=== PATIENT | female | born 1995 | race African-American/Black ===

== ENCOUNTER 2019-10-08 00:37 | Emergency (ER) | payer OTHER, SELFPAY ==
[2019-10-08 00:40] VITALS: BP 135/96; PULSE 120; RESP 19; TEMP 37.9; O2SAT 100
[2019-10-08 01:12] VITALS: TEMP 37.5
[2019-10-08] MEDS: LIDOCAINE HCL 2% JELLY 30 ML TUBE 1 APPLIC MUCOUS MEM (01:58)
--- NOTE | 2019-10-08 02:09 | ED.FEMALEGU ---
HPI - Female Genitourinary General Chief complaint: Urogenital-Female Stated complaint: vaginal pain Time Seen by Provider: 10/08/19 00:56 History of Present Illness HPI Narrative: Patient is a 24-year-old female who presents the ER with pain around her vagina. Reports 3 days ago she was diagnosed with herpetic infection and started on Valtrex when urgent care in [place]. Symptoms had started 2 days prior to that. She has ulcerations around the vagina because significant discomfort with urinating and makes her very uncomfortable with any type of walking. She is having discomfort in the inguinal creases where she is developed some lymphadenopathy. Elevated temperature here but denies fevers or chills at home. She has no abdominal pain or nausea/vomiting. Has not noted any vaginal discharge or vaginal bleeding. Reports she was not treated for gonorrhea or chlamydia and she did not have a pelvic exam performed. Samples were taken from her lesions to see if they were in fact herpes. Related Data Allergies Allergy/AdvReac Type Severity Reaction Status Date / Time No Known Drug Allergies Allergy Unknown Unknown Unverified 10/08/19 01:58 Review of Systems Review of Systems: All systems reviewed & are unremarkable except as noted in HPI and below Constitutional: Constitutional: Denies chills Comments: No fevers Gastrointestinal: Gastrointestinal: Denies abdominal pain, Denies diarrhea, Denies nausea and Denies vomiting Genitourinary: Genitourinary: Denies abnormal vaginal bleeding, Denies nocturia and Denies vaginal discharge Comments: Pain with urination but feels it is due to lesions not due to the urine itself. Integumentary/Breasts: Skin/Breast: Reports erythema and Reports skin ulcer PMFSH Past Medical History Medical History (Updated 10/08/19 @ 03:55 by Michael Sanders MD) Healthy female adult Surgical History Surgical History (Updated 10/08/19 @ 02:12 by Michael Sanders MD) History of appendectomy Social History Social History (Updated 10/08/19 @ 02:12 by Michael Sanders MD) Smoking status: Never smoker Gender identity (if verbalized by the patient): Female Exam Narrative: Exam Narrative: GENERAL: Uncomfortable-appearing, well-nourished, and in no acute distress. HEAD: Normocephalic, atraumatic. CHEST: Clear to auscultation. No respiratory distress. HEART: Regular rate and rhythm. Normal peripheral pulses. ABDOMEN: Soft, nontender, nondistended. EXTREMITIES: Normal range of motion. No edema. Pelvic: External genitalia with ulcerations around inner aspect of the labia majora lining the labia minora. Surrounds the marquez of the clitoris and also has an ulceration at the base of vagina near the perineum. There is yellow discharge coming from the vagina and the vaginal wall appears inflamed. Speculum exam with normal-appearing cervix with scant discharge within the vagina. Tolerated well after lidocaine jelly application. NEURO: Alert and oriented x3. Course Course Emergency Course: Trichomonas negative. Discharge home with Flagyl and topical lidocaine. Received ceftriaxone and azithromycin here for possible STD exposure. Swab sent to lab. Vital Signs Vital signs: Vital Signs Temperature 100.3 F H 10/08/19 00:40 Pulse Rate 120 H 10/08/19 00:40 Respiratory Rate 19 10/08/19 00:40 Blood Pressure 135/96 H 10/08/19 00:40 Pulse Oximetry 100 10/08/19 00:40 Temperature 99.5 F 10/08/19 01:12 Pulse Rate 100 10/08/19 02:30 Respiratory Rate 20 10/08/19 02:30 Blood Pressure 132/87 10/08/19 02:30 Pulse Oximetry 97 10/08/19 02:30 MDM - Female Genitourinary Lab Data Labs: Lab Results 10/08/19 10/08/19 Range/Units 03:07 03:07 C.trachomatis RNA (TMA) Pending N.gonorrhoeae RNA (TMA) Pending Trichomonas Direct ID Negative (Negative) Discharge Plan Discharge Clinical Impression: Herpes genitalis, Exposure to STD Patient Disposition:
[2019-10-08 02:30] VITALS: BP 132/87; PULSE 100; RESP 20; O2SAT 97
[2019-10-08] MEDS: AZITHROMYCIN 250 MG TABLET 1000 MG PO (03:12)
[2019-10-08] MEDS: cefTRIAXone 250 MG VIAL IM (03:12)
[2019-10-08 04:13] VITALS: BP 121/80; PULSE 90; RESP 17; O2SAT 97
== END 2019-10-08 04:00 | disposition home or self-care (01) ==
PROVIDERS: Emergency Provider Emergency Medicine
DX: A60.04 Herpesviral vulvovaginitis (principal)
CPT/HCPCS: 87070; 87077; 87491; 87591; 87808; 96372; 99284; A9270; J0696

== ENCOUNTER 2020-05-21 00:23 | Emergency (ER) | payer OTHER, SELFPAY ==
--- NOTE | ~2020-05-21 | XR_ITS ---
EXAMINATION: XR chest 1V portable INDICATION: Left-sided chest pain TECHNIQUE: Portable AP chest at 0118 hours COMPARISON: 05/22/2018 FINDINGS: The lungs are free of acute opacities. There is no pleural effusion or pneumothorax. The ca rdiomediastinal silhouette is normal. Thoracic dextroscoliosis is noted. IMPRESSION: 1. No acute cardiopulmonary abnormality. Reviewed, dictated and finalized at location [facility]. [employer]
[2020-05-21 00:27] VITALS: BP 128/84; PULSE 94; RESP 16; TEMP 36.7; O2SAT 100
--- NOTE | 2020-05-21 00:38 | ECG_ITS ---
Measurements Intervals [place] Rate: 97 P: 31 HI: 142 QRS: 59 QRSD: 79 T: 45 QT: 308 QTc: 392 Interpretive Statements SINUS RHYTHM BORDERLINE ECG Electronically Signed On 05-21-2020 7:09:07 INSTRUCTIONAL DESIGN SPECIALIST by Bernardo Paz D.O.
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
[2020-05-21] MEDS: ASPIRIN 81 MG CHEWABLE TABLET 324 MG PO (01:00)
[2020-05-21] MEDS: KETOROLAC 30 MG/ML VIAL (*BKC) IV PUSH (01:01)
[2020-05-21 01:42] LABS: Basophils Absolute Auto 0.1 K/mm3 (0.0-0.1); Basophils Percent Auto 0.5 % (0.2-1.2); Eosinophils Absolute Auto 0.2 K/mm3 (0-0.3); Eosinophils Percent Auto 1.9 % (0-4.4); Hematocrit 44.1 % (37.0-47.0); Hemoglobin 14.2 g/dL (12.0-15.0); Immature Granulocyte Absolute 0.02 K/mm3 (0.00-0.031); Immature Granulocyte Percent A 0.2 % (0-0.5); Lymphocytes Absolute Auto 3.66 K/mm3 (0.9-3.2); Lymphocytes Percent Auto 38.9 % (18.3-44.2); Mean Corpuscular HGB Conc 32.2 g/dl (32-36); Mean Corpuscular Hemoglobin 29.3 pg (26-34); Mean Corpuscular Volume 91.1 fl (80-100); Monocytes Percent Auto 10.6 % (2.6-8.5); Neutrophils Absolute Auto 4.5 K/mm3 (1.3-6.7); Neutrophils Percent Auto 47.9 % (45.5-73.1); Platelet Count Result 295 k/mm3 (150-375); Red Blood Count 4.84 M/mm3 (4.2-5.4); Red Cell Distribution Width 12.5 % (11.5-14.5); White Blood Count 9.4 K/mm3 (4.5-10.0)
[2020-05-21 01:44] LABS: Alanine Aminotransferase 34 U/L (4-35); Albumin Level 4.3 g/dL (3.5-5.1); Alkaline Phosphatase 90 U/L (38-126); Anion Gap 5 mmol/L (8-16); Aspartate Amino Transferase 29 U/L (14-36); Bilirubin,Total 0.4 mg/dL (0.2-1.3); Blood Urea Nitrogen 6 mg/dL (7-17); Carbon Dioxide 29 mmol/L (22-30); Chloride 105 mmol/L (98-107); Estimated CRCL calculation 94 ml/min; Estimated Glomerular Filt Rate > 60; Glucose 74 mg/dL (65-105); Lipase 182 U/L (23-300); Potassium 3.3 mmol/L (3.4-5.0); Sodium 139 mmol/L (137-145); Troponin I < 0.012 ng/mL (0.000-0.034)
[2020-05-21 01:47] LABS: INR 0.9; Partial Thromboplastin Time 27.4 SECONDS (22.3-36.8); Prothrombin Time 12.6 Seconds (11.1-14.7)
[2020-05-21 02:12] VITALS: BP 124/80; PULSE 74; RESP 16; TEMP 36.8; O2SAT 100
== END 2020-05-21 02:13 | disposition home or self-care (01) ==
PROVIDERS: Emergency Medicine; Emergency Provider Emergency Medicine; PCP Internal Medicine
DX: R07.89 Other chest pain (principal)
CPT/HCPCS: 36415; 71045; 80053; 83690; 84484; 85025; 85610; 85730; 93005; 96374; 99284; A9270; J1885

== ENCOUNTER 2020-08-17 15:54 | Emergency (ER) | payer OTHER, SELFPAY ==
[2020-08-17 16:02] VITALS: BP 126/76; PULSE 84; RESP 12; TEMP 37.3; O2SAT 100
--- NOTE | 2020-08-17 16:21 | ED.GENADULT ---
HPI - General Adult General Chief complaint: Upper Respiratory Infection Stated complaint: Shortness of Breath Time Seen by Provider: 08/17/20 16:13 Source: patient and RN notes reviewed Mode of arrival: ambulatory Limitations: no limitations History of Present Illness HPI narrative: 25-year-old -Domin[place] female presents with complains of intermittent shortness of breath for the past 2-3 months. Regina reports intermittent shortness of breathing increasing over the past 2 weeks and in need of Albuterol inhaler refilled. No treatment. Denies cough and chest congestion. Denies rhinorrhea and nasal congestion. No high fevers, drooling, neck or throat swelling. No chest pain or wheezing. Exacerbation factors consist of smoke exposure. Denies nausea, vomiting, and abdominal pain. Tolerating liquids well. LMP 04/21/2020 due to Depo Provera injections, last July 2020. Remains active. The patient reports she have not been diagnosed with COVID-19. The patient reports she is not waiting for the results of a COVID-19 lab test. The patient reports she do not have chills, weakness, or fatigue. The patient reports she do not have any sore throat, loss of taste or smell, and diarrhea. Denies recent traveling. Denies concerns for COVID-19 or exposures. At this time, patient is not suspected of having COVID-19. Some parts of this dictation were generated by voice recognition software and may contain typographical and/or grammatical inaccuracies. Related Data Allergies Allergy/AdvReac Type Severity Reaction Status Date / Time No Known Drug Allergies Allergy Unknown Unknown Verified 06/10/20 10:05 Review of Systems Review of Systems: Narrative: CONSTITUTIONAL: Denies fever, chills, sweats. EYES: Denies visual changes, redness, discharge. ENT: Denies rhinorrhea, congestion, sore throat, otalgia. CARDIOVASCULAR: Denies chest pain, palpitations, edema. RESPIRATORY: Complains of intermittent dyspnea. Denies wheezing, cough. GASTROINTESTINAL: Denies abdominal pain, nausea, vomiting, diarrhea. SKIN: Denies rash or itching. MUSCULOSKELETAL: Denies acute back pain, joint pain, or myalgia. NEUROLOGIC: Denies numbness or focal weakness. PSYCHIATRIC: Denies anxiety or depression. All systems reviewed & are unremarkable except as noted in HPI and below. [facility] Past Medical History Medical History Asthma Healthy female adult Surgical History Surgical History History of appendectomy 2011 Family History Family History (Updated 08/17/20 @ 16:24 by GERA Donato) Father Alcoholism Asthma Hypertension Mother Hypertension Sibling Depression Social History Social History (Updated 08/25/20 @ 11:04 by GERA Donato) Smoking status: Never smoker Tobacco type: cigarettes Second hand tobacco smoke exposure: Yes Alcohol intake: current Substance use: never Living arrangements: with family Occupation/Education: unemployed Gender identity (if verbalized by the patient): Female Comments At time of signature, agree with nurse past medical, surgical, social, and family history. There is relevant patient's and family history pertinent to the presenting complaint. Exam Narrative: Exam Narrative: GENERAL: This is a well-nourished, well-developed patient, in no apparent distress. Talks in full sentences and ambulates with steady gait without dyspnea. HEAD: Normocephalic, atraumatic. EYES: PERRL. Sclera clear/white. Vision is grossly intact. EARS: External ears normal, auditory canals clear and without drainage, TMs normal without perforation. Hearing grossly intact. NOSE: External nose normal with no obvious nasal discharge, nares with mild redness and enlarged turbinates, no rhinorrhea. THROAT: Mucous membranes moist, posterior pharynx clear. Mild erythema, tonsils normal. NEC
== END 2020-08-17 16:30 | disposition home or self-care (01) ==
PROVIDERS: Emergency Provider Nurse Practitioner Family; PCP Internal Medicine
DX: J00 Acute nasopharyngitis [common cold] (principal); J01.90 Acute sinusitis, unspecified; J45.909 Unspecified asthma, uncomplicated
CPT/HCPCS: 99213; G0463

== ENCOUNTER 2021-07-11 00:05 | Emergency (ER) | payer OTHER, SELFPAY ==
[2021-07-11 00:07] VITALS: BP 141/82; PULSE 111; RESP 16; TEMP 36.7; O2SAT 100
--- NOTE | 2021-07-11 00:33 | ED.ABDPAIN ---
HPI - Abdominal Pain General Chief Complaint: Abdominal Pain Stated Complaint: abdominal pain, hematuria, diarrhea Time Seen by Provider: 07/11/21 00:16 History of Present Illness HPI narrative: 26-year-old female presents the emergency room with complaints of lower abdominal cramping that resolved after diarrhea. Patient is also stating that she noticed some hematuria. Presently patient has no complaints. Denies back pain, denies fever, denies nausea or vomiting. Patient expressed no concerns over STDs. Patient states her last menstrual period was over 1 year ago Related Data Home Medications Medication Instructions Recorded Confirmed albuterol sulfate 90 mcg/actuation 1 - 2 puff INHALATION QID PRN gm 05/11/21 aerosol inhaler fluticasone propionate 50 1 spray NASAL BID PRN ml 05/11/21 mcg/actuation nasal spray,suspension loratadine 10 mg tablet 10 mg PO DAILY PRN tablet 05/11/21 Allergies Allergy/AdvReac Type Severity Reaction Status Date / Time No Known Drug Allergies Allergy Unknown Unknown Verified 05/11/21 13:27 Review of Systems Review of Systems: CONSTITUTIONAL: Denies fever, chills, or sweats. EYES: Denies visual changes, redness, or discharge. ENT: Denies rhinorrhea, congestion, sore throat, or otalgia. CARDIOVASCULAR: Denies chest pain, palpitations, or edema. RESPIRATORY: Denies cough or dyspnea. GASTROINTESTINAL: Reports resolved lower abdominal pain. With diarrhea GENITOURINARY: Reports hematuria SKIN: Denies rash or itching. MUSCULOSKELETAL: Denies back pain, joint pain, or myalgia. NEUROLOGIC: Denies headache, numbness, dizziness, or weakness. PSYCHIATRIC: Denies anxiety or depression. [facility] Past Medical History Medical History Asthma Healthy female adult Surgical History Surgical History History of appendectomy 2011 Family History Family History Father Alcoholism Asthma Hypertension Mother Hypertension Sibling Depression Social History Social History Smoking status: Never smoker Tobacco type: cigarettes Second hand tobacco smoke exposure: Yes Alcohol intake: current Substance use: never Gender identity (if verbalized by the patient): Female Exam Narrative: GENERAL: Well-appearing, well-nourished, and in no acute distress. HEAD: Normocephalic, atraumatic. EYES: PERRLA and EOMI. CHEST: Clear to auscultation. No respiratory distress. No wheezes rales or rhonchi HEART: Regular rate and rhythm. No murmur heard. Normal peripheral pulses. ABDOMEN: Soft, nontender, nondistended, normal active bowel sounds. No guarding. EXTREMITIES: Normal range of motion. No edema. Moves all extremities well SKIN: Warm, dry, no rash. NEURO: No focal deficits. Alert and oriented x3. PSYCH: Normal mood and affect. Course Vital Signs Vital signs: Vital Signs Temperature 36.7 C 07/11/21 00:07 Pulse Rate 111 H 07/11/21 00:07 Respiratory Rate 16 07/11/21 00:07 Blood Pressure 141/82 H 07/11/21 00:07 Pulse Oximetry 100 07/11/21 00:07 Temperature 36.7 C 07/11/21 00:07 Pulse Rate 111 H 07/11/21 00:07 Respiratory Rate 16 07/11/21 00:07 Blood Pressure 141/82 H 07/11/21 00:07 Pulse Oximetry 100 07/11/21 00:07 MDM - Abdominal Pain Lab Data Labs: Lab Results 07/11/21 Range/Units 00:37 Urine Color Other (Yellow) Urine Appearance Cloudy H (Clear) Urine pH 5.5 (5.0-9.0) Ur Specific [place] >= 1.030 (1.001-1.035) Urine Protein 2+ H (Negative) mg/dL Urine Glucose (UA) Negative (Negative) mg/dL Urine Ketones Trace (Negative) mg/dL Ur Blood (Man) 3+ H (Negative) Urine Nitrate Negative (Negative) Urine Bilirubin 1+ H (Negative) Urine Urobilinogen 0.2 (<2.0) mg/
[2021-07-11 00:47] LABS: Appearance Urine Cloudy (Clear); Bilirubin Urine 1+ (Negative); Blood Urine 3+ (Negative); Color Urine Other (Yellow); Glucose Urine UA Negative (Negative); Ketones Urine Trace mg/dL (Negative); Leukocyte Esterase Ur 1+ LEU/UL (Negative); Nitrate Urine Negative (Negative); Protein Urine 2+ mg/dL (Negative); Specific Grav Ur >= 1.030 (1.001-1.035); Urobilinogen Urine 0.2 mg/dL (<2.0); pH Urine 5.5 (5.0-9.0)
[2021-07-11 00:56] LABS: Bacteria Urine 4+ /hpf; Mucus Urine Few /lpf; RBC Urine >75 /hpf (0-2); Squamous Epithelial Cell Urine Moderate /hpf (Few); WBC Clumps Urine Present /HPF; WBC Urine >75 /hpf
[2021-07-11 00:57] LABS: Add Urine Microscopic? YES
[2021-07-11] MEDS: NITROFURANTOIN MONOHYD MACROCR 100 MG CAP PO (00:58)
[2021-07-11] MEDS: PHENAZOPYRIDINE HCL 100 MG TABLET 200 MG PO (01:02)
[2021-07-11 01:10] VITALS: BP 119/82; PULSE 75; RESP 16; O2SAT 99
== END 2021-07-11 01:11 | disposition home or self-care (01) ==
PROVIDERS: Emergency Provider Nurse Practitioner Family; PCP Internal Medicine
DX: N39.0 Urinary tract infection, site not specified (principal); J45.909 Unspecified asthma, uncomplicated; Z77.22 Contact with and (suspected) exposure to environmental tobacco smoke (acute) (chronic)
CPT/HCPCS: 81001; 81025; 87077; 87086; 87088; 87186; 99283; A9270

== ENCOUNTER 2023-01-13 10:05 | Emergency (ER) | payer BC, OTHER, SELFPAY ==
[2023-01-13 10:10] VITALS: BP 143/94; PULSE 89; RESP 19; TEMP 36.8; O2SAT 99
--- NOTE | 2023-01-13 11:01 | ED.DENTAL ---
HPI - Dental/Oral General Chief complaint: Dental/Oral Stated complaint: dental pain Time Seen by Provider: 01/13/23 10:28 Source: patient Mode of arrival: ambulatory Limitations: no limitations History of Present Illness HPI Narrative: This is a 27-year-old female that presents to the emergency department for dentalgia. Ongoing over the last couple of weeks. Reports she was seen for this 6 days ago. Started on penicillin. Reports she did miss some doses of this. Her pain started again last night. Denies fevers, swelling, redness, or discharge. MD Complaint: tooth pain Related Data Home Medications Medication Instructions Recorded Confirmed albuterol sulfate 90 mcg/actuation 1 - 2 puff inhalation QID PRN 05/11/21 aerosol inhaler (ProAir HFA) bronchospasm fluticasone propionate 50 1 spray intranasal BID PRN allergy 05/11/21 mcg/actuation nasal symptoms spray,suspension (Allergy Relief (fluticasone)) loratadine 10 mg tablet (Claritin) 10 mg PO DAILY PRN allergy symptoms 05/11/21 Allergies Allergy/AdvReac Type Severity Reaction Status Date / Time No Known Drug Allergies Allergy Unknown Unknown Verified 01/13/23 10:33 Review of Systems Review of Systems: CONSTITUTIONAL: Denies fever ENT: Reports dentalgia All systems reviewed & are unremarkable except as noted in HPI and below PMFSH Past Medical History Medical History Asthma Healthy female adult Surgical History Surgical History History of appendectomy 2011 Family History Family History Father Alcoholism Asthma Hypertension Mother Hypertension Sibling Depression Social History Social History Smoking status: Never smoker Tobacco type: cigarettes Second hand tobacco smoke exposure: Yes Alcohol intake: current Substance use: never Living arrangements: with family Occupation/Education: unemployed Gender identity (if verbalized by the patient): Female Exam Narrative: GENERAL: Well-appearing, well-nourished, and in no acute distress. HEAD: Normocephalic, atraumatic. EYES: EOMI. ENT: Nares clear, no rhinorrhea or epistaxis. Mucous membranes moist. Oropharynx without tonsillar hypertrophy exudate or other lesions. No erythema, edema or fluctuance to suggest abscess NECK: Supple. No adenopathy or masses. CHEST: No respiratory distress. HEART: Regular rate EXTREMITIES: Normal range of motion. No edema. SKIN: Warm, dry, no rash. NEURO: No focal deficits. Alert and oriented x3. PSYCH: Normal mood and affect Course Course Emergency Course: Patient and family agree with plan of care. Had long discussion about medication compliance and dosing of Tylenol and Ibuprofen for pain Vital Signs Vital signs: Vital Signs Temperature 98.2 F 01/13/23 10:10 Pulse Rate 89 01/13/23 10:10 Respiratory Rate 19 01/13/23 10:10 Blood Pressure 143/94 H 01/13/23 10:10 Pulse Oximetry 99 01/13/23 10:10 Oxygen Delivery Room Air 01/13/23 10:10 Temperature 98.2 F 01/13/23 10:10 Pulse Rate 89 01/13/23 10:10 Respiratory Rate 19 01/13/23 10:10 Blood Pressure 143/94 H 01/13/23 10:10 Pulse Oximetry 99 01/13/23 10:10 Oxygen Delivery Room Air 01/13/23 10:10 MDM - Dental/Oral MDM Narrative Medical decision making narrative: Patient presents to the emergency department for a left upper molar pain. She is not able to localize a tooth. She is afebrile and nontoxic-appearing. There is no signs of abscess on exam. She will be started on Augmentin and was instructed she should follow-up with a dentist. Patient and family in agreement with plan. She was given warnings to return to the ER Differential Diagnosis Differential diagnosis: Likely dental caries,
== END 2023-01-13 11:26 | disposition home or self-care (01) ==
PROVIDERS: Emergency Provider Physician Assistant
DX: K08.89 Other specified disorders of teeth and supporting structures (principal); J45.909 Unspecified asthma, uncomplicated
CPT/HCPCS: 99283

== ENCOUNTER 2024-06-18 21:43 | Emergency (ER) | payer BC, OTHER, SELFPAY ==
--- NOTE | ~2024-06-18 | XR_ITS ---
CHEST RADIOGRAPH, PA AND LATERAL CLINICAL HISTORY: CP that radiates down to left arm . COMPARISON: 05/21/2020 TECHNIQUE: PA and lateral views of the chest. FINDINGS The cardiomediastinal silhouette is unremarkable. The lungs are clear. S shaped curvature of the thoracolumbar spine. IMPRESSION: No focal infiltrate or effusion. Reviewed, dictated and finalized at location A.
[2024-06-18 21:44] VITALS: BP 124/92; PULSE 81; RESP 15; TEMP 36.8; O2SAT 100
--- OUTSIDE RECORDS SUMMARY | 2024-06-18 21:44 | XMS_ITS | Clinical Summary ---
Author Organization [facility] Address [address] [place] [address] Care Team Providers Care Movie Theater Manager Name Role Phone Unavailable Primary Care Provider Unavailabl e Source Comments [facility],non-owned Affiliates and Associated Physician Practices is amultiple site organization consisting of ambulatory clinics and hospital sitesin [place], [place] and [place]. This disclosure is being madepursuant to the Care Everywhere program and may not contain all informatio navailable regarding this patient. Last updated 17.[facility] Allergies No known active allergies Medications * Be aware that medications may not be up to date on this document. Alwaysverify current medications with the patient. Medication Sig Dispensed Refills Start Date End Date Status benzonatate (TESSALON) 200 MG capsule Take 1 capsule by mouth 3 times daily as needed for Cough 30 capsule 07/23/2017 Active Social History Tobacco Use Types Packs/Day Years Used Date Smoking Tobacco: Never Smokeless Tobacco: Never Sex and Gender Information Value Date Recorded Sex Assigned at Not on file Gender Identity Not on file Sexual Orientation Not on file Last Filed Vital Signs Vital Sign Reading Time Taken Comments Blood Pressure 116/72 07/23/2017 12:30 PM CDT Pulse 95 07/23/2017 12:30 PM CDT Temperature 37.2 C (98.9 F) 07/23/2017 12:30 PM CDT Respiratory Rate 18 07/23/2017 12:30 PM CDT Oxygen Saturation 99% 07/23/2017 12:30 PM CDT Inhaled Oxygen Concentration - - Weight 84.4 kg (186 lb) 07/23/2017 12:30 PM CDT Height 167.6 cm (5' 6 ) 07/23/2017 12:30 PM CDT Body Mass Index 30.02 07/23/2017 12:30 PM CDT Plan of Treatment Health Maintenance Due Date Last Done Comments PAP SMEAR 1994 HIV SCREENING 2009 HEPATITIS C SCREENING 02/01/2012 DTAP/TDAP/TD VACCINES (1 - Tdap) 2013 HEPATITIS B VACCINE (1 of 3 - 19+ 3-dose series) 2013 COVID-19 VACCINE (1 - 2023-2 5 season) 2023 INFLUENZA VACCINE (#1) 2023 DEPRESSION SCREENING 04/02/2024 ZOSTER VACCINE (1 of 2) 02/06/2044 HIB VACCINE Aged Out No longer eligi ble based on patient's age to complete this topic HPV VACCINE Aged Out No longer eligi ble based on patient's age to complete this topic MENINGOCOCCAL (Group B) VACC INE SHARED DECISION-MAKING Aged Out No longer eligibl e based on patient's age to complete this topic MENINGOCOCCAL GROUPS A/C/Y/W VACCINE Aged Out No longer eligible b ased on patient's age to complete this topic PNEUMOCOCCAL VACCINE Aged Out No long er eligible based on patient's age to complete this topic
--- OUTSIDE RECORDS SUMMARY | 2024-06-18 21:44 | XMS_ITS | Clinical Summary ---
Author Organization [facility] Address [facility] [place] [address] Care Team Providers Care Childcare Center Administrator Name Role Phone Michael Rubalcava MD Primary Care Provider Unavaila ble Allergies No known active allergies Medications medroxyPROGESTER one 150 MG/ML injection Inject 150 mg into the muscle every 3 (three) months. Active Family History Medical History Relation Comments No Known Problems Father No Known Problems Mother Relation Status Comments Father Mother Social History Tobacco Use Types Packs/Day Years Used Date Smoking Tobacco: Never Smokeless Tobacco: Never Alcohol Use Standard Drinks/Week Comments Not Currently 0 (1 standard drink = 0.6 oz pur e alcohol) Comments No Sex and Gender Information Value Date Recorded Sex Assigned at Not on file Legal Sex Female 8:30 PM CDT Gender Identity Not on file Sexual Orientation Not on file Last Filed Vital Signs Vital Sign Reading Time Taken Comments Blood Pressure 130/85 10/06/2019 11:22 AM CDT Pulse 90 10/06/2019 11:22 AM CDT Temperature 36.8 C (98.2 F) 10/06/2019 11:22 AM CDT Respiratory Rate 18 10/06/2019 11:22 AM CDT Oxygen Saturation 100% 10/06/2019 11:22 AM CDT Inhaled Oxygen Concentration - - Weight 83.5 kg (184 lb) 10/06/2019 11:22 AM CDT Height 167.6 cm (5' 6 ) 10/06/2019 11:22 AM CDT Body Mass Index 29.7 10/06/2019 11:22 AM CDT Plan of Treatment Health Maintenance Due Date Last Done Comments Cervical Cancer Screening Pa p Smear (Age 30 to 64) Every 3 Years 1994 Annual Physical 1997 Hepatitis C 02/06/2012 DTaP, Tdap and Td Vaccines ( 1 - Tdap) 2013 Hepatitis B Vaccines (1 of 3 - 19+ 3-dose series) 2013 COVID-19 Vaccine ( - 2023-2 5 season) 2023 Influenza Adult (#1) 2024 Cervical Cancer Screening Pa p with HPV Testing (Age 30 to 64) Every 5 Years 02/06/2024 Cervical Cancer Screening with HPV 02/06/2024 HPV Vaccines Aged Out No longer eligi ble based on patient's age to complete this topic Meningococcal B Vaccine Aged Out No l onger eligible based on patient's age to complete this topic Meningococcal Vaccine Aged Out No nafisa samuel eligible based on patient's age to complete this topic Pneumococcal Vaccine: Pediat rics (0 to 5 Years) and At-Risk Patients (6 to 64 Years) Aged Out No longer eligible b ased on patient's age to complete this topic RSV Immunizations Under 20 Months Aged Out No longer eligible based on patient's age to complete this topic Additional Health Concerns Infection Onset Date Last 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
--- OUTSIDE RECORDS SUMMARY | 2024-06-18 21:44 | XMS_ITS | Clinical Summary ---
Author Organization [facility] [address] Address [address] [place] [id number] Care Team Providers Care Pool Manager Name Role Phone Unknown, Notinfile Primary Care Provider Unavail able Allergies No known active allergies Medications benzonatate (TESSALON) 100 mg capsuleIndicati ons:Cough Take 1 capsule (100 mg total) by mouth 3 (three) times a day as needed for cough 42 capsule Active Additional Information Patient not taking.Reported on 09/19/2023 Active Problems No known active problems Social History Tobacco Use Types Packs/Day Years Used Date Smoking Tobacco: Never Assessed Personal Safety Answer Date Recorded Getting School Help Needed Not on file 06/03 Comments Unknown Sex and Gender Information Value Date Recorded Sex Assigned at Not on file Legal 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 Gender Identity Not on file Sexual Orientation Not on file Last Filed Vital Signs Vital Sign Reading Time Taken Comments Blood Pressure 123/82 09/19/2023 11:59 AM CDT Pulse 87 09/19/2023 11:59 AM CDT Temperature 36.4 C (97.6 F) 09/19/2023 11:59 AM CDT Respiratory Rate 22 09/19/2023 11:59 AM CDT Oxygen Saturation 100% 09/19/2023 11:59 AM CDT Inhaled Oxygen Concentration - - Weight 93 kg (205 lb) 09/19/2023 11:59 AM CDT Height 167.6 cm (5' 5.98 ) 09/19/2023 11:59 AM C DT Body Mass Index 33.1 09/19/2023 11:59 AM CDT Plan of Treatment Health Maintenance Due Date Last Done Comments Cervical Cancer Screening 1994 Depression Screening 1994 Hepatitis C Screening 1994 DTaP/Tdap/Td Vaccine (1 - Tdap) 2005 Varicella Vaccines (1 of 2 - 13+ 2-dose series) 2007 Hepatitis B Screening 02/06/2012 Regular Well Visit/Exam 18-64 02/06/2012 Covid-19 Vaccine (3 - 2023-2 5 season) 2023 05/17/2021, 04/26/2021 Influenza Vaccine (#1) 2023 01/09/2023 HPV Vaccines Aged Out No longer eligi ble based on patient's age to complete this topic Pneumococcal vaccine <65 Aged Out No longer eligible based on patient's age to complete this topic Insurance [facility] Care Teams Pool Manager Relationship Specialty Start Date End Date Unknown, Notinfile PCP - General 02/28/23
--- OUTSIDE RECORDS SUMMARY | 2024-06-18 21:44 | XMS_ITS | Referral Summary ---
Author Organization [facility] [address] Address [address] [place] [phone] Care Team Providers Care Retail Greeting Card Merchandiser Name Role Phone Unknown, Notinfile Primary Care [...] on file Legal Sex Female 6:45 PM NUTRITION SERVICES MANAGER Gender Identity Not on file Sexual Orientation [...] 09/19/2023 11:59 AM CDT Plan of Treatment Not on file Insurance [facility] [employer] Care Teams Retail Greeting Card Merchandiser Relationship Specialty Start Date End Date Unknown, Notinfile PCP - General 02/28/23
--- NOTE | 2024-06-18 21:48 | ECG_ITS ---
Test Date: 2024-06-18 21:51:21 Measurements Intervals [place] Rate: 76 P: 27 [place]: 162 QRS: 39 QRSD: 85 T: 31 QT: 352 QTc: 397 Interpretive Statements SINUS RHYTHM NONSPECIFIC T-WAVE ABNORMALITY No previous ECG available for comparison Electronically Signed On 06-19-2024 11:55:36 CDT by Sid Novoa M.D.
[2024-06-18 22:05] LABS: Basophils Absolute Auto 0.1 K/mm3 (0.0-0.1); Basophils Percent Auto 0.5 % (0.2-1.2); Eosinophils Absolute Auto 0.1 K/mm3 (0-0.3); Hematocrit 40.2 % (37.0-47.0); Hemoglobin 13.3 g/dL (12.0-15.0); Immature Granulocyte Absolute 0.02 K/mm3 (0.00-0.031); Immature Granulocyte Percent A 0.2 % (0-0.5); Lymphocytes Percent Auto 28.7 % (18.3-44.2); Mean Corpuscular HGB Conc 33.1 g/dl (32-36); Mean Corpuscular Hemoglobin 29.8 pg (26-34); Mean Corpuscular Volume 90.1 fl (80-100); Monocytes Absolute Auto 0.9 K/mm3 (0.1-0.6); Monocytes Percent Auto 7.9 % (2.6-8.5); Neutrophils Absolute Auto 6.7 K/mm3 (1.3-6.7); Neutrophils Percent Auto 61.7 % (45.5-73.1); Platelet Count Result 253 k/mm3 (150-375); Red Blood Count 4.46 M/mm3 (4.2-5.4); Red Cell Distribution Width 12.6 % (11.5-14.5); White Blood Count 10.8 K/mm3 (4.5-10.0)
[2024-06-18 22:16] LABS: Alanine Aminotransferase 16 U/L (6-35); Albumin Level 4.4 g/dL (3.5-5.1); Alkaline Phosphatase 94 U/L (38-126); Anion Gap 9 mmol/L (4-12); Aspartate Amino Transferase 23 U/L (14-36); Bilirubin,Total 0.7 mg/dL (0.2-1.3); Blood Urea Nitrogen 8 mg/dL (7-17); Calcium 9.2 mg/dL (8.4-10.2); Carbon Dioxide 27 mmol/L (22-30); Chloride 102 mmol/L (98-107); Estimated CRCL calculation 89 ml/min; Estimated Glomerular Filt Rate > 60; Glucose 91 mg/dL (65-110); Lipase 106 U/L (23-300); Potassium 3.2 mmol/L (3.4-5.0); Sodium 138 mmol/L (137-145)
[2024-06-18 22:19] LABS: Prothrombin Time 13.7 Seconds (11.1-14.7)
[2024-06-18 22:20] LABS: Partial Thromboplastin Time 28.1 Seconds (22.3-36.8)
[2024-06-18 22:27] LABS: Troponin I < 0.012 ng/mL (0.000-0.034)
[2024-06-19 00:12] VITALS: BP 115/75; PULSE 74; RESP 18; O2SAT 100
--- NOTE | 2024-06-19 02:25 | PC.NURSE ---
Rn called out pt name to take her back to a room. Pt did not respond to call out. Pt left without being seen by provider at 0212.
--- OUTSIDE RECORDS SUMMARY | 2024-06-19 02:42 | XMS_ITS | Referral Summary ---
Author Organization [facility] [address] Address [address] [place] [phone] Care Team Providers Care Carpet Measurer Name Role Phone Unknown, Notinfile Primary Care [...] on file Legal Sex Female 6:45 PM VP SOFTWARE Gender Identity Not on file Sexual Orientation [...] Plan of Treatment Not on file Insurance [facility] [employer] Care Teams Carpet Measurer Relationship Specialty Start Date End Date Unknown, Notinfile PCP - General 02/28/23
--- OUTSIDE RECORDS SUMMARY | 2024-06-19 02:42 | XMS_ITS | Clinical Summary ---
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
--- OUTSIDE RECORDS SUMMARY | 2024-06-19 02:42 | XMS_ITS | Clinical Summary ---
Author Organization [facility] [place] Address [address] [place] [address] Care Team Providers Care Non Destructive Evaluation Specialist Name Role Phone Unavailable Primary Care Provider Unavailabl e Source Comments [facility],non-owned Affiliates and Associated Physician Practices is amultiple site organization consisting of ambulatory clinics and hospital sitesin [place], [place], [place] and [place]. This disclosure is being madepursuant to the Care Everywhere program and may not contain all information available regarding this patient. Last updated 17.[facility] [place] Allergies No known active allergies Medications * [...]
--- OUTSIDE RECORDS SUMMARY | 2024-06-19 02:42 | XMS_ITS | Clinical Summary ---
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
== END 2024-06-19 02:12 | disposition left against medical advice (07) ==
PROVIDERS: Emergency Provider Emergency Medicine
DX: R07.9 Chest pain, unspecified (principal)
CPT/HCPCS: 36415; 71046; 80053; 83690; 84484; 85025; 85610; 85730; 93005; 99199